=== PATIENT | male | born 1970 | race Caucasian/White ===

== ENCOUNTER 2016-06-10 06:22 | Observation (INO) ==
[2016-06-10] MEDS ORDERED: Ondansetron 4 MG/2 ML VIAL IVP ONE (06:35)
[2016-06-10] MEDS ORDERED: 0.9 % Sodium Chloride 1,000 ML IVC ONE (06:38)
--- NOTE | 2016-06-10 06:42 | Emergency Department Note ---
Disposition Clinical Impression: Dizziness Disposition: Still a Patient Condition: Fair Referrals: Ankush Tee DO [Primary Care Provider] - Forms: ED Satisfaction Letter Time of Disposition: 07:12 Dizziness HPI - General Chief Complaint: ED Dizziness Stated Complaint: dizzy Time Seen by Provider: 06/10/16 06:25 Source: patient, EMS Limitations: no limitations Nursing Notes Reviewed: Yes Vital Signs Reviewed: Yes - History of Present Illness HPI Narrative: Patient is a 45-year-old male complains of dizziness of room spinning of acute onset that started 16 hours ago. Patient reports flulike illness 3 weeks ago. Patient states this is never happened before. Patient denies other past medical history recent surgeries. 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 - Related Data Allergies Allergy/AdvReac Type Severity Reaction Status Date / Time No Known Allergies Allergy Verified 06/10/16 06:24 Past Medical History - Past Medical History Medical history: Reports: hypertension Psychiatric history: Reports: no psych history - Social History Smoking Status: Never smoker Smokeless Tobacco Status: No Alcohol use: Reports: occasionally Drug use: Reports: none Physical Exam Vital Signs Temperature 97.9 F 06/10/16 06:25 Pulse Rate 80 06/10/16 06:25 Respiratory Rate 16 06/10/16 06:25 Blood Pressure 160/117 06/10/16 06:25 O2 Sat by Pulse Oximetry 99 06/10/16 06:25 Temperature 97.9 F 06/10/16 06:25 Pulse Rate 80 06/10/16 06:25 Respiratory Rate 16 06/10/16 06:25 Blood Pressure 160/117 06/10/16 06:25 O2 Sat by Pulse Oximetry 99 06/10/16 06:25 Oxygen Delivery Oxygen Delivery Room Air -General Appearance: Patient is a 45-year-old male who is alert and oriented 3 and in no acute distress. Patient does not appear toxic -Neurological exam: Cranial nerves II-12 intact, no focal deficits observed, strength equal 5/5 bilaterally in upper and lower extremities, cerebellar motion test negative. Negative loss of sensation negative HINTS exam, reflexes intact 2 out of 4 bilaterally, negative Babinski - Head Head exam: atraumatic, normocephalic, normal inspection - Eye Eye exam: Present: normal appearance, PERRL, EOMI, negative for scleral icterus negative for conjunctival pallor - ENT ENT exam: normal exam, normal oropharynx, mucous membranes moist - Neck Neck exam: Present: normal inspection, full ROM, trachea midline, negative JVD - Chest Chest inspection: Present: Patient has bilateral equal rise and fall of chest wall. Non-tender to palpation. - Respiratory Respiratory exam: Clear to auscultation bilaterally without wheezes rales or rhonchi Cardiovascular Cardiovascular exam: Present: regular rate, normal rhythm, normal heart sounds, without murmurs rubs or gallops. - Abdominal Exam Abdominal exam: Present: soft, nondistended, Non-Tender light and deep palpation in all quadrants. Bowel sounds normoactive throughout all 4 quadrants. Negative for hyper or hyperresonance. - Extremities Exam Extremities exam: Present: normal inspection, full ROM - Back Exam Back exam: Present: normal inspection, full ROM. Absent: tenderness, CVA tenderness (R), CVA tenderness (L) - Psychiatric Psychiatric exam: Present: normal affect, normal mood - Skin Skin exam: Present: warm, dry, intact, normal color - General Limitations: no limitations General appearance: alert, in no apparent distress Course - Reevaluation(s) Reevaluation #1: Assessment: Stroke, cerebellar infarct, meningitis, brain tumor, BPPV, Meniere' s disease, otoliths Plan: CBC, BMP, EKG, chest x-ray, IV normal saline, meclizine, Zofran Time: 06:38 Vital Signs Temperature 97.9 F 06/10/16 06:25 Pulse Rate 80 06/10/16 06:25 Respiratory Rate 16 06/10/16 06:25 Blood Pressure 160/117 06/10/16 06:25 O2 Sat by Pulse Oximetry 99 06/10/16 06:25 Temperature 97.9 F 06/10/16 06:25 Pulse Rate 90 06/10/16 06:52 Respiratory Rate 18 06/10/16 06:52 Blood Pressure 174/118 06/10/16 06:52 O2 Sat by Pulse Oximetry 98 06/10/16 06:52 Oxygen Delivery Oxygen Delivery Room Air Dizziness - Lab Data Result diagrams: 06/10/16 06:37 06/10/16 06:37 Lab Results 06/10/16 06/10/16 Range/Units 06:37 06:37 WBC 7.5 (4.3-11.1) K/mcL RBC 5.47 (4.19-5.50) M/mcL Hgb 17.4 H (12.9-16.9) g/dL Hct 49.1 (37.5-50.1) % MCV 89.8 (83.0-100.0) fL MCH 31.8 (28.0-33.3) pg MCHC 35.4 (31.6-35.5) g/dL RDW 11.9 (11.5-14.5) % Plt Count 211 (140-400) K/mcL MPV 8.8 L (9.4-12.4) fL Immature Gran % 0.7 (0-4) % Seg Neutrophils % 72.6 % Lymphocytes % 17.8 % Monocytes % 7.2 % Eosinophils % 0.9 % Basophils % 0.8 % Neutrophils # 5.4 (1.6-8.9) K/mcL Lymphocytes # 1.3 (0.6-4.6) K/mcL Monocytes # 0.5 (0.0-1.3) K/mcL Eosinophils # 0.1 (0.0-0.6) K/mcL Basophils # 0.1 (0.0-0.2) K/mcL Sodium 139 (136-145) mEq/L Potassium 4.2 (3.5-4.5) mEq/L Chloride 104 (98-109) mEq/L Carbon Dioxide 25 (19-29) mEq/L BUN 12 (8-26) mg/dL Creatinine 0.94 (0.72-1.25) mg/dL Est GFR ( Amer) > 60 (> 60) Est GFR (Non-Af Amer) > 60 (> 60) BUN/Creatinine Ratio 13 (6-26) Glucose 116 H (70-99) mg/dL Calculated Osmolality 289 (280-300) Calcium 9.6 (8.6-10.8) mg/dL - EKG Data EKG attestation: Yes I reviewed and interpreted this EKG. EKG results narrative: EKG taken 06/10/2016 and 0 6535hrs: EKG shows a sinus rhythm with ventricular rate of 80 bpm with mild premature atrial contraction occasionally. No acute ST elevations and depressions in any leads and QRS widening or QT prolongation. See EKG for comparison taken 05/28/2012 shows a sinus rhythm at a rate of [address] elevations or depressions any leads and QRS widening or QT prolongation S.B.A.R. - S.B.A.RMc Transition of Care: Transition of care will be handed over to daytime crew with Dr. Barragan resident and Dr. Munguia attending Situation: Demographics, MOA Background: Presenting Complaint, Relevant PMH, Meds, & Allergies Assessment: Vital Signs, Course and respsone to treatment, Exam Concerns Recommendation: Barrier(s) to disposition S.B.A.RMc Report Given to: Dr. Yung Merchant Repor Time: 06:58 Attestation Statement - Attestation Attestation: I, Stuart Leigh MD, personally evaluated this patient and discussed their management with the resident physician. I reviewed the resident's note and agree with the documented findings, medical decision making, and plan of care. 45-year-old male presents to the emergency department with a complaint of vertigo type dizziness. He had a brief episode which only lasted for seconds about 2 PM yesterday and then a second episode about 4 PM. Then about 6 PM he developed the vertigo and it has persisted since. He has had nausea and vomiting with the vertigo. No headache or tinnitus. Symptoms are worse when he opens his eyes or when he moves his head. Difficulty with balance. Her history. He does have a history of hypertension but no other significant medical problems. On examination patient is a well-developed well-nourished male in no acute distress. He is alert and oriented 3. There is no cyanosis or diaphoresis. He was equally round and reactive. Nystagmus noted which is worse with left lateral gaze. Neck is supple and nontender with no lymphadenopathy. No carotid bruits. Breath sounds are clear and equal bilaterally. Heart regular rate and rhythm. Abdomen soft and nontender with normal bowel sounds. No gross focal neurological deficits. EKG normal. Labs and meds ordered. At shift change the patient is being signed out to the oncoming dayshift team, Dr. Barragan and Dr. Munguia.
[2016-06-10 06:58] LABS: BUN/Creatinine Ratio 13 (6-26); Blood Urea Nitrogen 12 mg/dL (8-26); Calcium 9.6 mg/dL (8.6-10.8); Carbon Dioxide 25 mEq/L (19-29); Chloride 104 mEq/L (98-109); Glucose 116 mg/dL (70-99); Osmolality,Calculated 289 (280-300); Potassium 4.2 mEq/L (3.5-4.5); Sodium 139 mEq/L (136-145); eGFR For African Americans > 60 (> 60); eGFR For Non-African Americans > 60 (> 60)
[2016-06-10 07:00] LABS: Basophils # 0.1 K/mcL (0.0-0.2); Basophils % 0.8 %; Eosinophils # 0.1 K/mcL (0.0-0.6); Eosinophils % 0.9 %; Hematocrit 49.1 % (37.5-50.1); Hemoglobin 17.4 g/dL (12.9-16.9); Immature Granulocytes % 0.7 % (0-4); Lymphocytes # 1.3 K/mcL (0.6-4.6); Lymphocytes % 17.8 %; Mean Corpuscular HGB Conc 35.4 g/dL (31.6-35.5); Mean Corpuscular Hemoglobin 31.8 pg (28.0-33.3); Mean Corpuscular Volume 89.8 fL (83.0-100.0); Mean Platelet Volume 8.8 fL (9.4-12.4); Monocytes # 0.5 K/mcL (0.0-1.3); Monocytes % 7.2 %; Neutrophils # 5.4 K/mcL (1.6-8.9); Platelet Count 211 K/mcL (140-400); Red Blood Count 5.47 M/mcL (4.19-5.50); Red Cell Distribution Width 11.9 % (11.5-14.5); Segmented Neutrophils % 72.6 %
--- NOTE | 2016-06-10 07:17 | Emergency Department Note ---
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 Follow up with primary care physician as needed. Take meclizine as prescribed as needed for dizziness. Also take Zofran as prescribed as needed for nausea. Prescriptions: Ondansetron ODT [Zofran ODT] 4 mg SL Q6HR PRN #12 tab.rapdis PRN Reason: Nausea Meclizine [Antivert] 25 mg PO BID #12 tablet Referrals: Ankush Tee DO [Primary Care Provider] - Forms: ED Satisfaction Letter Time of Disposition: 15:05 Dizziness HPI - General Chief Complaint: ED Dizziness Stated Complaint: dizzy Time Seen by Provider: 06/10/16 06:25 Source: patient, EMS Mode of arrival: EMS Limitations: no limitations Nursing Notes Reviewed: Yes Vital Signs Reviewed: Yes - Related Data Home Medications Medication Instructions Recorded Confirmed Losartan Potassium [Cozaar] 100 mg PO DAILY 06/10/16 06/10/16 Multivitamin [Multi-Day Vitamins] 1 each PO DAILY 06/10/16 06/10/16 Previous Rx's Medication Instructions Recorded Meclizine [Antivert] 25 mg PO BID #12 tablet 06/10/16 Ondansetron ODT [Zofran ODT] 4 mg SL Q6HR PRN #12 tab.rapdis 06/10/16 Allergies Allergy/AdvReac Type Severity Reaction Status Date / Time No Known Allergies Allergy Verified 06/10/16 06:24 All systems ED: reviewed and negative except as stated. Constitutional: Denies: fever ENT ED: Reports: congestion. Denies: ear pain, throat pain Cardiovascular: Denies: chest pain, palpitations Respiratory: Reports: cough. Denies: dyspnea, wheezes Gastrointestinal: Reports: nausea, vomiting. Denies: abdominal pain, diarrhea, constipation, hematemesis, melena, hematochezia Musculoskeletal: Denies: back pain, neck pain Integumentary: Denies: rash, abrasion Neurological: Reports: vertigo. Denies: headache, weakness, numbness, paresthesias, confusion Past Medical History - Past Medical History Attestation: Yes The following information was validated with the patient. Source: patient Medical history: Reports: hypertension Psychiatric history: Reports: no psych history - Social History Smoking Status: Never smoker Smokeless Tobacco Status: No Alcohol use: Reports: occasionally Drug use: Reports: none Physical Exam - General Limitations: no limitations General appearance: alert, in no apparent distress - Head Head exam: atraumatic, normocephalic, normal inspection - Eye Eye exam: Present: PERRL, EOMI, other (leftward nystagmus, worsened with turning head to right.) - ENT ENT exam: normal exam, normal oropharynx, mucous membranes moist, other (mild fluid behind bilateral ear drums) - Neck Neck exam: Present: normal inspection, full ROM, trachea midline. Absent: tenderness, meningismus - Chest Chest inspection: Present: normal inspection, symmetric chest wall rise - Respiratory Respiratory exam: Present: normal lung sounds bilaterally - Cardiovascular Cardiovascular exam: Present: regular rate, normal rhythm, normal heart sounds - Extremities Exam Extremities exam: Present: normal inspection, full ROM. Absent: tenderness, pedal edema - Neurological Exam Neurological exam: Present: alert, oriented X3, CN II-XII intact. Absent: motor sensory deficit - Psychiatric Psychiatric exam: Present: normal affect, normal mood - Skin Skin exam: Present: warm, dry, intact, normal color Course Course Narrative: Patient was a signout from the night team, Dr. Leigh and Dr. Cross. Please see their notes for additional details. In summary, patient has had 2-3 episodes of vertigo yesterday, initially evening, began having an episode of vertigo around 5 or 6 PM that this remained constant. He feels like the room is spinning, worsened when moving his head left or right. He has leftward nystagmus , nausea and vomiting. Denies any fevers, abdominal pain, chest pain, shortness of breath, any numbness, tingling, weakness. He denies that this has ever happened before. He does admit to recent URI and feelings of ear pressure. His physical exam shows leftward nystagmus that is worsened when moving his head to the left and right. Mild fluid behind bilateral TMs. Meclizine, zofran, fluids ordered by prvious resident. Basic cardiac workup was also ordered. Negative trop, CBC and BMP within normal limits. CXR negative. We will reassess patient after he receives medications. Likely BPV, especially since patient recent URI, nystagmus is worsened with turning her head left and right. No concern for any intracranial process at this time considering neurologic exam is within normal limits. 08:04 Patient reassessed. Feels somewhat better but still has some dizziness and nausea. He received PO meds about 30 minutes ago. I discussed Valdemar maneuver with patient for treatment, but he wants to wait for improvement of symptoms before trying this. 09:30 patient reassessed. He is still having vertigo and leftward nystagmus. CT scan of the head was discussed with the patient to assess for any intracranial abnormalities, he was agreeable with this plan. We will give him Valium 5 mg to see if this helps with vertigo. 10:[address] negative for any acute intracranial abnormality. Valdemar maneuver performed bilaterally. No improvement in symptoms. WIll give patient another 25mg antivert and order MRI. 12:[address] Barron about admission due to inability to ambulate and admit for pending MRI. MRI called and they stated it cannot be obtained for another 1hr. Dr. Barron did not accept for admission at this time, requested MRI to be obtained first. 15:04 patient has a negative MRI. Unable to ambulate due to vertigo. Will admit the patient for inability to ambulate, vertigo, recommend further neurology follow-up and possible ultrasound of the carotids for further assessment. 15:30 Hospitalist paged for admission. He requested I talk with neurology for further recs before he would admit. Dr. Stein was contacted, he recommended addition of steroids and will be consult. Otherwise, he agreed with workup of CT, MRI, and meclizine and valium. Waiting on return page from hospitalist. Chest X-Ray 06/10/16 06:35 IMPRESSION: Negative portable chest. D/ / Kevin Moreira MD / Kevin Moreira MD Interpreting Provider: Kevin Moreira MD Head CT 06/10/16 09:21 IMPRESSION: No acute intracranial abnormality. D/ / Concepcion Rocha Cha, MD / Concepcion Rocha Cha, MD Interpreting Provider: Concepcion Rocha Cha, MD Vital Signs Temperature 97.9 F 06/10/16 06:25 Pulse Rate 80 06/10/16 06:25 Respiratory Rate 16 06/10/16 06:25 Blood Pressure 160/117 06/10/16 06:25 O2 Sat by Pulse Oximetry 99 06/10/16 06:25 Temperature 97.9 F 06/10/16 06:25 Pulse Rate 92 06/10/16 14:02 Respiratory Rate 18 06/10/16 14:02 Blood Pressure 144/95 06/10/16 14:02 O2 Sat by Pulse Oximetry 96 06/10/16 14:02 Oxygen Delivery Oxygen Delivery Room Air Dizziness - MDM Narrative Medical decision making narrative: Patient was a signout from the night team, Dr. Leigh and Dr. Cross. Please see their notes for additional details. In summary, patient has had 2-3 episodes of vertigo yesterday, initially evening, began having an episode of vertigo around 5 or 6 PM that this remained constant. He feels like the room is spinning, worsened when moving his head left or right. He has leftward nystagmus , nausea and vomiting. Denies any fevers, abdominal pain, chest pain, shortness of breath, any numbness, tingling, weakness. He denies that this has ever happened before. He does admit to recent URI and feelings of ear pressure. His physical exam shows leftward nystagmus that is worsened when moving his head to the left and right. Mild fluid behind bilateral TMs. Meclizine, zofran, fluids ordered by prvious resident. Basic cardiac workup was also ordered. Negative trop, CBC and BMP within normal limits. CXR negative. We will reassess patient after he receives medications. Likely BPV, especially since patient recent URI, nystagmus is worsened with turning her head left and right. No concern for any intracranial process at this time considering neurologic exam is within normal limits. 08:04 Patient reassessed. Feels somewhat better but still has some dizziness and nausea. He received PO meds about 30 minutes ago. I discussed Valdemar maneuver with patient for treatment, but he wants to wait for improvement of symptoms before trying this. 09:30 patient reassessed. He is still having vertigo and leftward nystagmus. CT scan of the head was discussed with the patient to assess for any intracranial abnormalities, he was agreeable with this plan. We will give him Valium 5 mg to see if this helps with vertigo. 10:[address] negative for any acute intracranial abnormality. Valdemar maneuver performed bilaterally. No improvement in symptoms. WIll give patient another 25mg antivert and order MRI. 12:[address] Barron about admission due to inability to ambulate and admit for pending MRI. MRI called and they stated it cannot be obtained for another 1hr. Dr. Barron did not accept for admission at this time, requested MRI to be obtained first. 15:04 patient has a negative MRI. Unable to ambulate due to vertigo. Will admit the patient for inability to ambulate, vertigo, recommend further neurology follow-up and possible ultrasound of the carotids for further assessment. - Medical Records Medical records reviewed: Yes I reviewed the patient's medical records. - Lab Data Lab results reviewed: Yes I reviewed the patient's lab results. Result diagrams: 06/10/16 06:37 06/10/16 06:37 Lab Results 06/10/16 06/10/16 06/10/16 Range/Units 06:37 06:37 06:37 WBC 7.5 (4.3-11.1) K/mcL RBC 5.47 (4.19-5.50) M/mcL Hgb 17.4 H (12.9-16.9) g/dL Hct 49.1 (37.5-50.1) % MCV 89.8 (83.0-100.0) fL MCH 31.8 (28.0-33.3) pg MCHC 35.4 (31.6-35.5) g/dL RDW 11.9 (11.5-14.5) % Plt Count 211 (140-400) K/mcL MPV 8.8 L (9.4-12.4) fL Immature Gran % 0.7 (0-4) % Seg Neutrophils % 72.6 % Lymphocytes % 17.8 % Monocytes % 7.2 % Eosinophils % 0.9 % Basophils % 0.8 % Neutrophils # 5.4 (1.6-8.9) K/mcL Lymphocytes # 1.3 (0.6-4.6) K/mcL Monocytes # 0.5 (0.0-1.3) K/mcL Eosinophils # 0.1 (0.0-0.6) K/mcL Basophils # 0.1 (0.0-0.2) K/mcL Sodium 139 (136-145) mEq/L Potassium 4.2 (3.5-4.5) mEq/L Chloride 104 (98-109) mEq/L Carbon Dioxide 25 (19-29) mEq/L BUN 12 (8-26) mg/dL Creatinine 0.94 (0.72-1.25) mg/dL Est GFR ( Amer) > 60 (> 60) Est GFR (Non-Af Amer) > 60 (> 60) BUN/Creatinine Ratio 13 (6-26) Glucose 116 H (70-99) mg/dL POC Glucose (58-89) Calculated Osmolality 289 (280-300) Calcium 9.6 (8.6-10.8) mg/dL Troponin I 0.01 (0-0.03) ng/mL 06/10/16 Range/Units 06:57 WBC (4.3-11.1) K/mcL RBC (4.19-5.50) M/mcL Hgb (12.9-16.9) g/dL Hct (37.5-50.1) % MCV (83.0-100.0) fL MCH (28.0-33.3) pg MCHC (31.6-35.5) g/dL RDW (11.5-14.5) % Plt Count (140-400) K/mcL MPV (9.4-12.4) fL Immature Gran % (0-4) % Seg Neutrophils % % Lymphocytes % % Monocytes % % Eosinophils % % Basophils % % Neutrophils # (1.6-8.9) K/mcL Lymphocytes # (0.6-4.6) K/mcL Monocytes # (0.0-1.3) K/mcL Eosinophils # (0.0-0.6) K/mcL Basophils # (0.0-0.2) K/mcL Sodium (136-145) mEq/L Potassium (3.5-4.5) mEq/L Chloride (98-109) mEq/L Carbon Dioxide (19-29) mEq/L BUN (8-26) mg/dL Creatinine (0.72-1.25) mg/dL Est GFR ( Amer) (> 60) Est GFR (Non-Af Amer) (> 60) BUN/Creatinine Ratio (6-26) Glucose (70-99) mg/dL POC Glucose 112 H (58-89) Calculated Osmolality (280-300) Calcium (8.6-10.8) mg/dL Troponin I (0-0.03) ng/mL - Radiology Data Radiology results reviewed: Yes I reviewed the patient's radiology results. Chest X-Ray 06/10/16 06:35 IMPRESSION: Negative portable chest. D/ / Kevin Moreira MD / Kevin Moreira MD Interpreting Provider: Kevin Moreira MD Head CT 06/10/16 09:21 IMPRESSION: No acute intracranial abnormality. D/ / Concepcion Rocha Cha, MD / Concepcion Rocha Cha, MD Interpreting Provider: Concepcion Rocha Cha, MD Brain MRI 06/10/16 10:36 IMPRESSION: Mild chronic small vessel ischemic disease within the periventricular white matter. No evidence of acute intracranial abnormality. D/ / 06/10/2016 14:14:00 Ousmane Granger MD / nilam Interpreting Provider: Ousmane Granger MD S.B.A.R. - S.B.A.R. Situation: Demographics, MOA Background: Presenting Complaint, Relevant PMH, Meds, & Allergies Assessment: Vital Signs, Course and respsone to treatment, Exam Concerns, Patient/Family Expectation, Pertinant Lab Results, Outstanding Labs Recommendation: Barrier(s) to disposition, Recommendation based on pending studies, treatments, or consults S.B.A.R. Report Given to: Dr. Beatrice Merchant Repor Time: 15:05 Attestation Statement - Attestation Attestation: I examined this patient and my medical decision-making was reviewed with the MARKET RESEARCH SENIOR PROJECT MANAGER/PA/Advanced Practice Nurse/Resident Physician. I agree with the documented findings, disposition and treatment plan as described except to the extent set forth below. Patient emergency Department dizziness. Sudden onset. No history of similar. And prosodic closes his eyes. Horizontal nystagmus on exam. Moving all extremities. Cranial nerves intact. Plan. Basic labs symptomatic care. Patient still dizzy after Antivert. Will check CT. CT unremarkable. AMI unremarkable as well. Tried to admit him on 2 occasions. Hospitalist accepting. Awaiting neurology phone consult at this time.
[2016-06-10] MEDS ORDERED: diazePAM 10 MG/2 ML SYRINGE IVP ONE (09:35)
[2016-06-10] MEDS ORDERED: predniSONE 20 MG TABLET PO ONE (17:02)
[2016-06-10] MEDS ORDERED: Ondansetron 4 MG/2 ML VIAL IVP PRN (18:41)
--- NOTE | 2016-06-10 19:12 | Internal Med History&Physical ---
Date of Encounter: 06/10/16 Time of Encounter: 19:02 Assessment and Plan (1) Vertigo Current visit: Yes Status: Acute ?BPV given acute onset, worsens with head movement. preceded by URI symptoms and ear fullness. head CT and brain MRI is negative. neurology was consulted, possible peripheral vertigo ? vestibulitis. recommended to start on prednisone will be seen by DR. Sraita tesfaye, will continue meclizine tid for now. Internal Medicine - H&P: HPI Chief complaint: dizziness Admitted From: Home Plans for Post Hospital Care: Home History of present illness: Mr. Harry is a 45 year old male who presented with 2-3 episodes of vertigo yesterday, initially evening, began having an episode of vertigo around 5 or 6 PM that this remained constant. He feels like the room is spinning, worsened when moving his head left or right. He has leftward nystagmus, nausea and vomiting. Denies any fevers, abdominal pain, chest pain, shortness of breath, any numbness, tingling, weakness. He denies that this has ever happened before. He does admit to recent URI and feelings of ear pressure. His physical exam shows leftward nystagmus that is worsened when moving his head to the left and right. he was given meclizine, diazepam and prednisone at ED. head CT negative for any acute intracranial abnormality. Valdemar maneuver performed bilaterally. No improvement in symptoms. patient has a negative MRI. Unable to ambulate due to vertigo. neurology was consulted and DR. Stein recommended adding steroids for possible ?vestibular inflammation. Past Med Surg Social Fam HX - Past Medical History Medical history: hypertension Psychiatric history: no psych history - Social History Smoking Status: Never smoker Smokeless Tobacco Status: No Alcohol use: occasionally Drug use: none - Family History Mother Hx Family Endocrine Disorder: Yes (thyroid cancer) Father Living Status: Hx Family Cancer: Yes (brain tumor) Internal Medicine - H&P: Meds Losartan Potassium [Cozaar] 100 mg PO DAILY 06/10/16 [History] Meclizine [Antivert] 25 mg PO BID #12 tablet 06/10/16 [Rx] Multivitamin [Multi-Day Vitamins] 1 each PO DAILY 06/10/16 [History] Ondansetron ODT [Zofran ODT] 4 mg SL Q6HR PRN #12 tab.rapdis 06/10/16 [Rx] Allergies No Known Allergies Allergy (Verified 06/10/16 06:24) All Systems PM: A 10-system review of systems was performed and is negative for pertinent findings except as documented above in the HPI. - Constitutional Vitals: Temp Pulse Resp BP Pulse Ox 97.7 F 90 16 139/94 96 06/10/16 17:27 06/10/16 17:27 06/10/16 17:27 06/10/16 17:27 06/10/16 17:27 General appearance: Present: A&O X 3, no acute distress Exam: neck- supple chest- b/l clear, no added sounds CVS- s1 and s2, no mr//g abd-soft, non tender, bs are present ext- no edema neuro- alert and awake, nystagmus+left eye , no focal deficits Internal Med - H&P Results - Labs CBC & Chem 7: 06/10/16 06:37 06/10/16 06:37
[2016-06-10] MEDS ORDERED: Naloxone 0.4 MG/ML INJ IVP PRN (19:34)
--- NOTE | 2016-06-10 20:46 | Neurology - Consult Note ---
Date of Encounter: 06/10/16 Time of Encounter: 17:00 Assessment and Plan (1) Vestibular neuronitis of left ear Current Visit: Yes Status: Acute It is my opinion that the patient has developed acute onset of persistent vertigo associated with autonomic symptoms consistent with vestibular dysfunction. The symptoms have already lasted 24 hours in duration since the onset (2pm yesterday) and is currently still having symptoms when moving and with abnormal focal nystagmus when gazing to left side. MRI of brain is negative therefore not [employer]OR pathology. Symptoms too prolonged to be BPPV plus the patient is too young for typical BPPV to occur. Meniere syndrome can give similar presentation but patient has no otological symptoms and he has no previous attacks. Symptoms would be most consistent with vestibular neuronitis, which usually follows the course of viral infection. Treatment include short course IV steroid if nauseated, PRN valium as vestibular suppressant, antiemetic for nausea vomiting. Scopalamine patch may help as well, fluid resuscitation and supportive care. patient has no history of trauma, no neck pain, no headaches and other cranial nerve deficits, with MRI of brain being negative, vertebral artery/carotid artery dissection unlikely. History of Present Illness Chief complaint: Dizziness HPI: Mr. Harry is a 45 year old male with no significant PMH who developed acute onset of dizziness associated with nausea and vomiting. The symptoms started at around 6pm yesterday when he was watching a movie along with his daughter. The episode was actually proceeded by two brief spells of vertigo at around 2 and then 4 pm but resolved quickly. He describes room spinning sensation that can be aggravated by moving and turning his head. he also developed nausea and vomited once yesterday. Today in the ER he again vomited after being moved and had to change position of his head. If eyes closed and he would feel better. Head movements aggravate the dizziness. CT of head in the ER showed no acute intracranial abnormality and MRI of brain was negative as well. Patient denies hearing difficulty, no tinnitus. No headaches. No fever. He did mention a flu like symptoms occurring 3 weeks ago with total resolution. Does have HTN but been taking Losartan and BP well controlled. Past Med Surg Social Fam HX - Past Medical History Medical history: hypertension Psychiatric history: no psych history - Social History Smoking Status: Never smoker Smokeless Tobacco Status: No Alcohol use: occasionally Drug use: none - Family History Mother Hx Family Endocrine Disorder: Yes (thyroid cancer) Father Living Status: Hx Family Cancer: Yes (brain tumor) Medications and Allergies Losartan Potassium [Cozaar] 100 mg PO DAILY 06/10/16 [History] Meclizine [Antivert] 25 mg PO BID #12 tablet 06/10/16 [Rx] Multivitamin [Multi-Day Vitamins] 1 each PO DAILY 06/10/16 [History] Ondansetron ODT [Zofran ODT] 4 mg SL Q6HR PRN #12 tab.rapdis 06/10/16 [Rx] Allergies No Known Allergies Allergy (Verified 06/10/16 06:24) All Systems: A 10-system review of systems was performed and is negative for pertinent findings except as documented above in the HPI. Physical Examination - Vital Signs Vital Signs: Initial Vital Signs Temp Pulse Resp BP Pulse Ox 97.9 F 80 16 160/117 99 06/10/16 06:25 06/10/16 06:25 06/10/16 06:25 06/10/16 06:25 06/10/16 06:25 - Constitutional General appearance: comfortable (as long as not moving he appears comfortable. Just ate and felt better already. ) - Neurologic Sensorimotor examination: intact (Grossly intact) Detailed motor examination: grossly full strength in all extremities (No focal weakness noted. ) Detailed sensory examination: intact (Grossly intact) Posture: other (None) Reflexes: Biceps: 1+, Triceps: 1+, Brachioradialis: 1+, Patella: 1+, Achilles: 1 + Mental Status Examination: awake, alert, oriented to person, oriented to place, oriented to time, follows commands appropriately, answers questions appropriately, no agnosia, no aphasia, no aproxia Cranial nerve examination: PERRL, EOMI (Eye movements full. Has horizontal nyastagmus when gazing to the left side, slow but large amplitude, nonsustained. Fast phase to right side), corneal reflexes brisk symmetrically, sensory to face intact, mastication intact, no facial asymmetry is present, no dysarthria, hearing is intact symmetrically, soft palate elevates bilaterally upon phonation, gag reflex intact, flexes SCM and trapezius muscles symmetrically with full power, tongue protrudes midline, no atrophy or facial fasiculations present Cerebellar examination: no dysmetria, performs finger to nose and heel to swenson symmetrically without ataxia, no gait ataxia (Not assessed), no truncal ataxia ( Not assessed), no difficulty with rapid alternating movements Results - Laboratory Findings CBC and BMP: 06/10/16 06:37 06/10/16 06:37 Abnormal lab findings: Abnormal lab results Hgb 17.4 g/dL (12.9-16.9) H 06/10/16 06:37 MPV 8.8 fL (9.4-12.4) L 06/10/16 06:37 Glucose 116 mg/dL (70-99) H 06/10/16 06:37 POC Glucose 112 (58-89) H 06/10/16 06:57 Consult Discharge Plan - Plan Referrals: Ankush Tee DO [Primary Care Provider] -
[2016-06-11] MEDS: *HR* Enoxaparin 40 MG/0.4 ML SYRINGE SQ SCH (04:52)
[2016-06-11 05:24] LABS: Basophils % 0.1 %; Eosinophils % 0.1 %; Hematocrit 48.6 % (37.5-50.1); Hemoglobin 16.2 g/dL (12.9-16.9); Immature Granulocytes % 0.3 % (0-4); Lymphocytes # 0.9 K/mcL (0.6-4.6); Lymphocytes % 11.9 %; Mean Corpuscular HGB Conc 33.3 g/dL (31.6-35.5); Mean Corpuscular Hemoglobin 30.7 pg (28.0-33.3); Mean Platelet Volume 8.6 fL (9.4-12.4); Monocytes # 0.2 K/mcL (0.0-1.3); Monocytes % 3.1 %; Platelet Count 202 K/mcL (140-400); Red Blood Count 5.28 M/mcL (4.19-5.50); Red Cell Distribution Width 11.8 % (11.5-14.5); Segmented Neutrophils % 84.5 %
[2016-06-11 05:43] LABS: BUN/Creatinine Ratio 13 (6-26); Blood Urea Nitrogen 13 mg/dL (8-26); Calcium 8.9 mg/dL (8.6-10.8); Carbon Dioxide 25 mEq/L (19-29); Chloride 106 mEq/L (98-109); Glucose 141 mg/dL (70-99); Magnesium 2.1 mg/dL (1.6-2.6); Osmolality,Calculated 290 (280-300); Phosphorous 3.3 mg/dL (2.3-4.7); Potassium 4.5 mEq/L (3.5-4.5); Sodium 139 mEq/L (136-145); eGFR For African Americans > 60 (> 60); eGFR For Non-African Americans > 60 (> 60)
--- NOTE | 2016-06-11 09:29 | Neurology Progress Note ---
Date of Encounter: 06/11/16 Time of Encounter: 09:29 Assessment and Plan (1) Vestibular neuritis Current Visit: Yes Status: Acute Patient had flu symptoms 3 weeks ago and it is the likely cause of this labyrinthitis, his nystagmus resolved, vertigo has improved slightly compared to 2 days ago, nausea/vomiting resolved after IV antiemetic medication, this is a self-limiting disease, treatment with drugs is neither necessary nor possible , continue symptomatic management, this can take 1-6 weeks to have a resolution of the symptoms, physical therapy with combinations of head/eye movement, postural changes and walking exercises might help his symptoms, patient denies any underlying history of psychiatric issues. Qualifiers: Qualified Code(s): H81.22 - Vestibular neuronitis, left ear Subjective Principal diagnosis: Labyrinthitis Interval history: Patient seen and examined. He states that nausea/vomiting improved after IV antiemetic medication, his nystagmus resolved, compared to 2 days ago his vertigo has improved slightly, he still feels spinning of room sensation whenever he gets up and moves around. Objective - Constitutional Vitals: Temp Pulse Resp BP Pulse Ox 98.0 F 81 16 125/84 98 06/11/16 07:55 06/11/16 07:55 06/11/16 07:55 06/11/16 07:55 06/11/16 07:55 General appearance: Present: cooperative, A&O X 3, pleasant, no acute distress, answers questions appropriately - Head Head exam: Present: atraumatic, normal inspection, normocephalic - Eye Eye exam: Present: EOMI, normal appearance, PERRL. Absent: nystagmus - Extremities Exam Extremities exam: Present: full ROM, normal inspection, warm, radial pulses palpable and symetrical. Absent: calf tenderness, cyanotic, pedal edema, tenderness - Neurological Exam Sensorimotor examination: Present: intact. Absent: pronator drift, hemiparesis , hemineglect, rigidity Motor Examination: Present: grossly full strength in all extremities, full strength in all major muscle groups Motor examination - right side: 5/5: deltoids, biceps, triceps, wrist flexion, wrist extension, associate professor of geology, hip flexors, quadriceps, plantarflexion Motor examination - left side: 5/5: deltoids, biceps, triceps, wrist flexion, wrist extension, hip flexors, associate professor of geology, quadriceps, plantarflexion Sensation intact: Present: intact Reflex and gait examination: intact Reflexes: Biceps: 2+, Triceps: 2+, Brachioradialis: 2+, Patella: 2+, Achilles: 2 + Mental Status Examination: Present: awake, alert, oriented to person, oriented to place, oriented to time, follows commands appropriately, answers questions appropriately, no agnosia, no aphasia, no aproxia Cranial nerve examination: Present: PERRL, EOMI, visual [place] intact, sensory to face intact, mastication intact, no facial asymmetry is present, no dysarthria, hearing is intact symmetrically, soft palate elevates bilaterally upon phonation, tongue protrudes midline, no atrophy or facial fasiculations present, veritgo Cerebellar examination: Present: no dysmetria, no truncal ataxia, no difficulty with rapid alternating movements Results - Laboratory Findings CBC and BMP: 06/11/16 04:39 06/11/16 04:39 Abnormal lab findings: Abnormal lab results MPV 8.6 fL (9.4-12.4) L 06/11/16 04:39 Glucose 141 mg/dL (70-99) H 06/11/16 04:39 POC Glucose 103 (58-89) H 06/11/16 07:58 Consult Discharge Plan - Plan Referrals: Ankush Tee DO [Primary Care Provider] -
[2016-06-11] MEDS ORDERED: diazePAM 10 MG/2 ML SYRINGE IVP PRN (10:00)
[2016-06-11] MEDS: predniSONE 20 MG TABLET PO SCH (10:49)
--- NOTE | 2016-06-11 15:14 | Internal Med Progress Note ---
Date of Encounter: 06/11/16 Time of Encounter: 09:30 - Assessment and plan (1) Vestibular neuritis Current Visit: Yes Status: Acute Assessment and plan: Patient denies vision changes at this time. He is currently symptomatic. Prednisone daily for a 10 day taper. Valium as needed for vertigo symptoms. Ondansetron for nausea. Head CT negative. Brain MRI negative. Neurology on board. Overall, patient is improving but he is currently symptomatic. We will prescribe Valium twice a day with meclizine as needed for breakthrough symptoms. No focal neurological weakness is present on examination. We will observe overnight and possibly discharge tomorrow pending clinical outcomes. At this point, patient's vertigo is too severe for him to be able to safely go home. ITS Impressions Head CT 06/10/16 09:21 IMPRESSION: No acute intracranial abnormality. D/ / Concepcion Rocha Cha, MD / Concepcion Rocha Cha, MD Interpreting Provider: Concepcion Rocha Cha, MD Brain MRI 06/10/16 10:36 IMPRESSION: Mild chronic small vessel ischemic disease within the periventricular white matter. No evidence of acute intracranial abnormality. D/ / 06/10/2016 14:14:00 Ousmane Granger MD / nilam Interpreting Provider: Ousmane Granger MD (2) Vertigo Current Visit: Yes Status: Acute (3) HTN (hypertension) Current Visit: Yes Status: Chronic Assessment and plan: Controlled with his home dosing of losartan 100 mg daily. We will continue to trend. - Subjective Interval history: Patient seen and examined. On examination, patient is sitting upright in bed. He has his eyes closed and his television is off in his room is dark. He states he was feeling better up until this morning when he began to experience vertigo again. He states he is eating well. He denies any vision changes. - Constitutional Vitals: Temp Pulse Resp BP Pulse Ox 97.7 F 81 16 126/81 97 06/11/16 11:28 06/11/16 11:28 06/11/16 11:28 06/11/16 11:28 06/11/16 11:28 General appearance: Present: A&O X 3, pleasant, no acute distress, answers questions appropriately - Head Head exam: Present: atraumatic, normocephalic - Eye Eye exam: Present: EOMI, PERRL, conjuntiva pink, sclera anicteric Pupils: Present: PERRL - Neck Neck exam general surgery: Present: supple, trachea midline. Absent: lymphadenopathy - Respiratory Respiratory exam: Present: CTAB. Absent: accessory muscle use, rales, respiratory distress, rhonchi, wheezes - Cardiovascular Cardiovascular exam: Present: RRR, +S1, +S2. Absent: diastolic murmur, gallop, rubs, systolic murmur - GI/Abdominal GI/Abdominal exam: Present: normal bowel sounds, soft, no peritoneal signs. Absent: distended, tenderness - Extremities Exam Extremities exam: Present: warm, radial pulses palpable and symetrical. Absent : calf tenderness, cyanotic, pedal edema - Neurological Exam Neurological exam: Present: alert, CN II-XII intact, oriented X3, no focal deficits, strengths equal and symetr throughout. Absent: pronater drift, facial droop, speech deficit - Skin Skin exam: Present: dry, intact, normal color, warm Internal Medicine: Result - Labs CBC & Chem 7: 06/11/16 04:39 06/11/16 04:39 Labs: Short CBC 06/11/16 Range/Units 04:39 WBC 7.2 (4.3-11.1) K/mcL Hgb 16.2 (12.9-16.9) g/dL Hct 48.6 (37.5-50.1) % Plt Count 202 (140-400) K/mcL Neutrophils # 6.0 (1.6-8.9) K/mcL BMP 06/11/16 04:39 Sodium 139 Potassium 4.5 Chloride 106 Carbon Dioxide 25 BUN 13 Creatinine 1.01 Glucose 141 H Calcium 8.9 Consult Discharge Plan - Plan Referrals: Ankush Tee DO [Primary Care Provider] - 06/18/16 9:30 am
--- NOTE | 2016-06-11 17:31 | Neurology Progress Note ---
Date of Encounter: 06/11/16 Time of Encounter: 17:28 Assessment and Plan (1) Vestibular neuronitis of left ear Current Visit: Yes Status: Acute Slowly improving but expect him to continue to improve. symptoms may last few days to few weeks in the form of disequillibrium or balance difficulty. Treatment at this time is largely supportive with the use of steroid/meclizine and fluid rescucitation. if continue to improve patient can be discharged home but recommend rest at home for a week. Subjective Principal diagnosis: Labyrinthitis Interval history: Patient seen and examined. he is doing a little better at the time of this interview. But it was reported that he was miserable this morning. Overall speaking, his symptoms have improved compared to yesterday or the day before. He is able to eat now and no nausea and vomiting. no hearing loss or tinnitus. is on oral steroid therapy and meclizine, essentially medical and supportive care Objective - Constitutional Vitals: Temp Pulse Resp BP Pulse Ox 98.0 F 87 18 125/78 97 06/11/16 15:41 06/11/16 15:41 06/11/16 15:41 06/11/16 15:41 06/11/16 15:41 General appearance: Present: cooperative, A&O X 3, pleasant, no acute distress, answers questions appropriately - Neurological Exam Sensorimotor examination: Present: intact. Absent: pronator drift, hemiparesis , hemineglect, rigidity Motor Examination: Present: grossly full strength in all extremities, full strength in all major muscle groups Motor examination - left side: 5/5: deltoids, biceps, triceps, wrist flexion, wrist extension, hip flexors, research administrator, quadriceps, plantarflexion Sensation intact: Present: intact Posture: Present: other (None) Reflex and gait examination: intact Mental Status Examination: Present: awake, alert, oriented to person, oriented to place, oriented to time, follows commands appropriately, answers questions appropriately, no agnosia, no aphasia, no aproxia Cranial nerve examination: Present: PERRL, EOMI, visual [place] intact, sensory to face intact, mastication intact, no facial asymmetry is present, no dysarthria, hearing is intact symmetrically, soft palate elevates bilaterally upon phonation, tongue protrudes midline, no atrophy or facial fasiculations present, veritgo Cerebellar examination: Present: no dysmetria, no truncal ataxia, no difficulty with rapid alternating movements Results - Laboratory Findings CBC and BMP: 06/11/16 04:39 06/11/16 04:39 Abnormal lab findings: Abnormal lab results MPV 8.6 fL (9.4-12.4) L 06/11/16 04:39 Glucose 141 mg/dL (70-99) H 06/11/16 04:39 POC Glucose 128 (58-89) H 06/11/16 17:16 Consult Discharge Plan - Plan Referrals: Ankush Tee DO [Primary Care Provider] - 06/18/16 9:30 am
[2016-06-11] MEDS: diazePAM 10 MG/2 ML SYRINGE IVP SCH (21:21)
--- NOTE | 2016-06-11 22:28 | Electrocardiograph Report ---
[facility] Test Date: 2016-06-10 Pat Name: Julius Harry Department: 104 Room: 3B54 Gender: M [place] Picker: [facility] : 1970 Requested By: Concepcion See Order Number: [id number] Reading MD: Heath Steiner MD Measurements Intervals Central Rate: 80 P: 44 AK: 145 QRS: 7 QRSD: 110 T: 14 QT: 376 QTc: 412 Interpretive Statements SINUS RHYTHM WITH SINUS ARRHYTHMIA Electronically Signed On 06-11-2016 22:26:12 EDT by Heath Steiner MD
[2016-06-12] MEDS: *HR* Enoxaparin 40 MG/0.4 ML SYRINGE SQ SCH (04:55)
[2016-06-12 08:08] VITALS: BP 135/93
[2016-06-12] MEDS: diazePAM 10 MG/2 ML SYRINGE IVP SCH (08:14)
[2016-06-12] MEDS: predniSONE 20 MG TABLET PO SCH (08:14)
--- NOTE | 2016-06-12 09:58 | Discharge Summary ---
Date of Encounter: 06/12/16 Time of Encounter: 09:00 - Discharge Diagnosis (1) Vestibular neuritis Priority: Primary Status: Acute Comments: Patient denies vision changes throughout this admission. He had mild vertigo on day of discharge however his nausea had subsided and he states that he was able to function well. Prednisone daily for a 10 day taper. Valium as needed for vertigo symptoms. Ondansetron for nausea. Head CT negative. Brain MRI negative. Neurology on board and have cleared him for outpatient follow-up. (2) Vertigo Priority: Primary Status: Acute (3) HTN (hypertension) Priority: Secondary Status: Chronic Comments: Controlled with his home medications, follow up outpatient. - Discharge Medications Prescriptions: Ondansetron ODT [Zofran ODT] 4 mg SL Q6HR PRN #12 tab.rapdis PRN Reason: Nausea And Vomiting Diazepam [Valium] 5 mg PO BID PRN #14 tablet PRN Reason: Vertigo PredniSONE 10 mg PO DAILY #29 tablet Home Medications: Losartan Potassium [Cozaar] 100 mg PO DAILY 06/10/16 [History] Meclizine [Antivert] 25 mg PO BID #12 tablet 06/10/16 [Rx] Multivitamin [Multi-Day Vitamins] 1 each PO DAILY 06/10/16 [History] Diazepam [Valium] 5 mg PO BID PRN #14 tablet 06/12/16 [Rx] Ondansetron ODT [Zofran ODT] 4 mg SL Q6HR PRN #12 tab.rapdis 06/12/16 [Rx] PredniSONE 10 mg PO DAILY #29 tablet 06/12/16 [Rx] Allergies/Adverse Reactions: Allergies No Known Allergies Allergy (Verified 06/10/16 06:24) Date of admission: 06/10/16 16:27 Primary care physician: Ankush Tee, Consults: 06/10/16 16:12 Consult to Neurology [CONS] Routine Consulting Provider: [facility] Reason for Consult: vertigo, leftward nystagmus. Spoke with Dr. Stein Time Notified: 16:13 Call Completed: Yes Discharging clinician: Grace Martinez Anticipated date of discharge: 06/12/16 - Patient Status Disposition: Home, Self-Care Condition: Good Functional capacity at discharge: independent ambulation Overall status at discharge: patient is back to baseline - Discharge Instructions Follow Up With: Ankush Tee DO [Primary Care Provider] - 06/18/16 9:30 am Additional Instructions: Follow-up with primary care provider as scheduled - Diet and Activity Activity: increase activity as tolerated, resume usual activities as tolerated Diet: low salt diet Hospital course: Mr. Harry is a 45 year old male with only past medical history of hypertension. Patient presented to emergency department chief complaint 2-3 episodes of vertigo with the final episode becoming constant. Patient stating he felt as if the room was spinning and was worsened with movement of his head. Associated symptoms include nystagmus, nausea and vomiting. Workup in the emergency department unremarkable. Head CT negative. Chest x-ray negative. Patient was admitted to the hospitalist service for further evaluation and management. Brain MRI negative for acute processes. His symptoms were consistent with vestibular neuritis nearly started on prednisone and symptoms were controlled with Valium and ondansetron. Patient was admitted and observed over the course of 3 days and on day 3, he was able to tolerate a regular diet and his nausea had subsided. He still had mild vertigo but was able to be functionable and had an upright and steady gait. He was discharged home in stable condition with close outpatient follow-up recommended. He was discharged on a 10 day prednisone taper. ITS Impressions Chest X-Ray 06/10/16 06:35 IMPRESSION: Negative portable chest. D/ / Kevin Moreira MD / Kevin Moreira MD Interpreting Provider: Kevin Moreira MD Head CT 06/10/16 09:21 IMPRESSION: No acute intracranial abnormality. D/ / Concepcion Rocha Cha, MD / Concepcion Rocha Cha, MD Interpreting Provider: Concepcion Rocha Cha, MD Brain MRI 06/10/16 10:36 IMPRESSION: Mild chronic small vessel ischemic disease within the periventricular white matter. No evidence of acute intracranial abnormality. D/ 06/10/2016 14:14:00 Ousmane Granger MD / nilam Interpreting Provider: Ousmane Granger MD - Time Spent with Patient Total time spent providing and/or coordinating discharge services: - Constitutional Vitals: Temp Pulse Resp BP Pulse Ox 98.1 F 75 16 135/93 98 06/12/16 08:07 06/12/16 08:07 06/12/16 08:07 06/12/16 08:07 06/12/16 08:07 General appearance: Present: A&O X 3, pleasant, no acute distress, answers questions appropriately - Head Head exam: Present: atraumatic, normocephalic - Eye Eye exam: Present: PERRL, conjuntiva pink, sclera anicteric Pupils: Present: PERRL - Neck Neck exam general surgery: Present: supple, trachea midline. Absent: lymphadenopathy - Respiratory Respiratory exam: Present: CTAB. Absent: accessory muscle use, rales, respiratory distress, rhonchi, wheezes - Cardiovascular Cardiovascular exam: Present: RRR, +S1, +S2. Absent: diastolic murmur, gallop, rubs, systolic murmur - GI/Abdominal GI/Abdominal exam: Present: normal bowel sounds, soft, no peritoneal signs. Absent: distended, tenderness - Extremities Exam Extremities exam: Present: warm, radial pulses palpable and symetrical. Absent : calf tenderness, cyanotic, pedal edema - Neurological Exam Neurological exam: Present: alert, CN II-XII intact, normal gait, oriented X3, no focal deficits, strengths equal and symetr throughout. Absent: pronater drift, facial droop, speech deficit - Skin Skin exam: Present: dry, intact, normal color, warm
== END 2016-06-12 11:49 | disposition home or self-care (01) ==
LOC: EMEROO 06:22 → 3BNU 06:22 → SUATTDRO 16:27 → 3BNU 17:20
PROVIDERS: ADMIT Internal Medicine; ATTEND Nurse Practitioner Family